=== PATIENT | female | born 1990 | race Caucasian/White ===

== ENCOUNTER → 2017-02-25 00:37 | Observation (INO) ==
--- NOTE | 2017-02-25 06:04 | Discharge Summary ---
Date of Encounter: 02/25/17 Time of Encounter: 00:20 - Discharge Diagnosis (1) Fall due to stumbling Priority: Primary Status: Acute Comments: Patient states she fell in [place] tonight. She states she caught herself during her fall and landed on her hands and knees without contact onto her stomach. She states positive movement, and denies cramping, contractions , leaking of fluid, vaginal bleeding, headahces, vision changes, and epigastric pain. She states she has some minor pain to her hands, elbows, and knees due to the fall. She is Rh negative and has received rhogam twice during her current . NST - reactive per RN KB - no cells present Discharge home with labor precautions and kick counts F/U in office with routine care as follows and prn Qualifiers: Encounter type: initial encounter Qualified Code(s): W01.0XXA - Fall on same level from slipping, tripping and stumbling without subsequent striking against object, initial encounter (2) 32 weeks gestation of Priority: Secondary Status: Acute - Discharge Medications Home Medications: Ferrous Sulfate 04/10/16 [History] Tablet 04/10/16 [History] Ranitidine HCl 04/10/16 [History] cephALEXin [Keflex] 500 mg PO TID #15 capsule 09/05/16 [Rx] Allergies/Adverse Reactions: Allergies No Known Allergies Allergy (Verified 02/24/17 22:52) Data Procedures and tests throughout hospitalization: Laboratory Tests 02/24/17 22:45 Volume Blood 0 Labs on day of discharge: Labs from last 24 hours 02/24/17 22:45 Volume Blood 0 Date of admission: 02/24/17 22:29 Primary care physician: PCP NO Discharging clinician: Felecia Oliva Anticipated date of discharge: 02/25/17 - Patient Status Disposition: Home, Self-Care Condition: Good Functional capacity at discharge: independent ambulation - Discharge Instructions Follow Up With: BETHANY,PCP [Primary Care Provider] - Codey Luke MD [Partnered Physician] - - Diet and Activity Activity: resume usual activities as tolerated Diet: regular diet Hospital Course INFORMATION SYSTEMS SECURITY MANAGER Time Attestation: Total time spent providing and/or coordinating discharge services: Time Spent: Less than 30 minutes - VTE Reasons for not Prescribing Prophylaxis: Treatment not Indicated - Low risk for VTE
== END | disposition home or self-care (01) ==
LOC: 1NENULAB
PROVIDERS: ADMIT Obstetrics & Gynecology; ATTEND Obstetrics & Gynecology

== ENCOUNTER 2017-04-14 09:20 | Inpatient (IN) ==
--- NOTE | 2017-04-14 09:27 | OB/GYN History & Physical ---
Date of Encounter: 04/14/17 Time of Encounter: 09:25 Assessment and Plan (1) 39 weeks gestation of Current visit: Yes Status: Acute Admit for induction of labor Started oxytocin induction IV Plan for Epidural Anticipated spontaneous vaginal delivery (2) Non-stress test reactive Current visit: Yes Status: Acute Baseline 135 bpm Moderate variability History of Present Illness Chief complaint: induction HPI: Patient is a 26 year-old female who presents to labor and delivery for induction of labor Patient reports good movement. Patient denies vaginal bleeding, sustained contractions, and loss of fluid. Uncomplicated course. She does have a family history of cleft palate and renal agenesis, but both were visualized as normal on latest ultrasound. She was last seen in the office by Dr. Luke earlier today. Her cervix was 4 and 80% effaced. Position -1. Her previous labors were both induced. Blood type: O- GBS negative Past Med Surg Social Fam HX - Past Medical History Medical history: no medical history Psychiatric history: no psych history - Past Surgical History Surgical History: no surgical history - Social History Smoking Status: Never smoker Smokeless Tobacco Status: No Alcohol use: none Drug use: none - Family History Father Living Status: Still Living Obstetrical History - Pregnancies : 3 Para: 2 Term: 2 : 0 Ab's: 0 Livin Medications and Allergies Ferrous Sulfate 325 mg PO BID 04/10/16 [History] Tablet 1 tab PO DAILY 04/10/16 [History] Ranitidine HCl 150 mg PO BID 04/10/16 [History] 3 Allergy/AdvReac Type Severity Reaction Status Date / Time No Known Allergies Allergy Verified 02/24/17 22:52 Review of System OB - Cardiovascular Cardiovascular: no chest pain - Respiratory Respiratory: no dyspnea on exertion - Gastrointestinal Gastrointestinal: no diarrhea, no nausea, no vomiting Exam - Constitutional Constitutional: well developed, well nourished, no acute distress - HEENT HEENT: Normocephaly, Mucus Membranes Moist - Neck Neck exam: trachea midline - Lungs Respiratory exam: CTAB - Cardiovascular Cardiovascular exam: RRR, +S1, +S2 - Abdomen Abdomen: Present: gravid, non tender - Extremities Extremities exam: normal capillary refill, normal inspection Deep Tendon Reflex Grade: 2+ Normal - Cervix Dilation: 4 Effacement: 80 Station: -1 - Uterus Uterus exam: Present: normal size, normal contour Results Result Diagrams: 04/14/17 09:40 All other labs normal. - Attending Attestation I examined this patient and my medical decision-making was reviewed with the Resident Physician. I agree with the documented findings, disposition and treatment plan as described except to the extent set forth below. Gestation 39 weeks and 2 days. Serologies all normal. POC per consult with Dr Luke and Dr Jauregui. Felecia Oliva CNM
[2017-04-14] MEDS ORDERED: Metoclopramide 10 MG/2 ML VIAL IVP PRN (09:40)
[2017-04-14] MEDS ORDERED: Ondansetron 4 MG/2 ML VIAL IVP PRN (09:40)
[2017-04-14] MEDS ORDERED: Naloxone 0.4 MG/ML INJ IVP PRN (09:40)
[2017-04-14] MEDS ORDERED: Famotidine 20 MG/2 ML VIAL IVP PRN (09:40)
[2017-04-14] MEDS ORDERED: Oxytocin 20 units/ LR 1000 mL 20 UNIT/1,000 ML BAG IVC SCH ×2 (09:45→20:31)
[2017-04-14 09:52] LABS: Basophils % 0.5 %; Eosinophils # 0.1 K/mcL (0.0-0.6); Eosinophils % 0.6 %; Hematocrit 33.6 % (35.3-44.9); Hemoglobin 10.2 g/dL (11.5-15.4); Immature Granulocytes % 0.5 % (0-4); Lymphocytes # 2.3 K/mcL (0.6-4.6); Lymphocytes % 27.5 %; Mean Corpuscular HGB Conc 30.4 g/dL (31.6-35.5); Mean Corpuscular Hemoglobin 23.9 pg (28.0-33.3); Mean Corpuscular Volume 78.7 fL (83.0-100.0); Monocytes # 0.6 K/mcL (0.0-1.3); Monocytes % 7.3 %; Neutrophils # 5.3 K/mcL (1.6-8.9); Platelet Count 270 K/mcL (140-400); Red Blood Count 4.27 M/mcL (3.82-4.97); Red Cell Distribution Width 14.4 % (11.5-14.5); Segmented Neutrophils % 63.6 %
[2017-04-14] MEDS: Ringers Solution, Lactated 1,000 ML IVC SCH ×3 (10:03→14:42)
[2017-04-14] MEDS ORDERED: Famotidine 20 MG TABLET PO SCH (10:45)
[2017-04-14] MEDS ORDERED: Epidural Premix (fent/bupiv) 110 ML EP ONE (12:59)
[2017-04-14] MEDS ORDERED: Epidural Premix (fent/bupiv) 110 ML EP SCH (13:00)
--- NOTE | 2017-04-14 13:00 | OB Labor Progress Note ---
Date of Encounter: 04/14/17 Time of Encounter: 12:51 Labor Progress Note - Subjective Subjective: Patient resting comfortably in bed stating that pain is tolerable with contractions. - Vital Signs Vital Signs: VSS - Cervix Cervix: 4/80/0 anterior firm - Heart Tones Heart Tones: 120-130 with moderate variability and 15 x 15 accels. no decels. - [place]: Contractions every 2-3 minutes, moderate by palpation. - Interventions Interventions: Discussed AROM - patient elects to have AROM after epidural. - Plan Plan: Continue routine labor management GBS negative Epidural per patient request AROM after patient is comfortable Anticipate vaginal delivery POC per consult with Dr Jauregui
[2017-04-14] MEDS ORDERED: EPHEDrine 50 MG/ML VIAL ONE (13:50)
--- NOTE | 2017-04-14 14:01 | Anesthesia Evaluation PreOp ---
Date of Encounter: 04/14/17 Time of Encounter: 13:20 - Past History Planned Operation: jaime Cardiac History: Denies any Significant Hx Pulmonary History: Denies Any Significant HX TUGGER OPERATOR History: Denies Any Significant HX Other Medical History: Denies Any Significant HX Anesthesia History: No Prior Anesthetic Complications : Yes Test: Positive Alcohol Use: none Drug use: none Medications and Allergies Ferrous Sulfate 325 mg PO BID 04/10/16 [History] Tablet 1 tab PO DAILY 04/10/16 [History] Ranitidine HCl 150 mg PO BID 04/10/16 [History] 3 Allergy/AdvReac Type Severity Reaction Status Date / Time No Known Allergies Allergy Verified 02/24/17 22:52 - Meds/Allergy Pre-op Review Medications Reviewed: Yes Allergies Reviewed: Yes Beta Blockers on Current Med List: No Anesthesia Results - Labs 04/14/17 09:40 Anesthesia Exam Height: 62 Weight: 76 Pain Scale: 7 - HEENT Pupil (Motor): Pupils equal Mallampati: II Teeth: Normal Oral Opening: Greater than 3 - TUGGER OPERATOR LOC: Oriented TUGGER OPERATOR Motor: Normal RUE, Normal LUE, Normal RLE, Normal LLE, Normal Face TUGGER OPERATOR Sensory: Normal: RUE, LUE, RLE, LLE, Face - Cardiac Rhythm: Regular Murmur: None JVD: No Carotid Bruit: No - Pulmonary Breath Sounds: bilateral Clear Respiratory Effort: Symmetrical Anesthesia Assess/Plan ASA Score: 2 Modified [place] Scale for Level of Consciousness: Cooperative, oriented, and tranquil Anesthetic Plan: Regional, MAC Autologous Blood: No Monitoring Plan: Standard Monitors
--- NOTE | 2017-04-14 14:03 | Anesthesia Procedures ---
Date of Encounter: 04/14/17 Time of Encounter: 13:20 Procedures: Anesthesia - Epidural/Spinal Patient ID/Chart reviewed: Yes Patient examined: Yes OB Eval: Gestational age: 39.2 OB Eval: : 3 OB Eval: Hx Para: 2 OB Eval: Contractions: Non-stressed pattern Consent Obtained: Yes Supplemental Oxygen: None/Room Air Site Prep: Aseptic Technique, Sterile prep and drape, Povidone-Iodine 1% Patient position: upright Local Anesthetic: Lidocaine 1% Amount of Local Anesthetic used: 3 Touhy Needle Gauge: 18 Touhy Needle Depth (cm): 4 Catheter Depth at Skin (cm): 10 Test Dose (1.5% Lido + Epi): Volume given (mls): 3 Test Dose Result: Negative Infusion Rate (mls/hr): [address]: Tegaderm, Tape Interspace Used: L4-L5 Loss of Resistance (DAPHNIE): Yes Blood: No CSF: No Paresthesia: No Vitals + FHT's: stable see nurasing record
--- NOTE | 2017-04-14 14:32 | OB Labor Progress Note ---
Date of Encounter: 04/14/17 Time of Encounter: 14:31 Labor Progress Note - Subjective Subjective: Patient resting comfortably in bed. Epidural in place and patient not feeling contractions - Vital Signs Vital Signs: VSS - Cervix Cervix: 5-6/80/0 - Heart Tones Heart Tones: 130-140 with moderate variability and 15 x 15 accels and no decels. - Ma[place] Ma[place]: Contractions every 2-4 minutes palpate moderate - Interventions Interventions: AROM for small amount of clear fluid; patient and fetus tolerated well - Plan Plan: Continue routine labor management. GBS negative Continue IV pitocin as ordered for adequate labor Pain well controlled with epidural Anticipate vaginal delivery POC per consult with Dr Jauregui
[2017-04-14] MEDS ORDERED: Lidocaine 1% 20 ML MDV ONE ×2 (17:46→18:02)
--- NOTE | 2017-04-14 18:43 | OB/GYN Procedure Note ---
Delivery - Delivery Date: 04/14/17 Provider: Arnaud Jauregui Intrapartum events: none Delivery induction: oxytocin Delivery augmentation: rupture of membranes Delivery monitor: external FHT, external uterine Anesthesia: local, epidural Estimated Blood Loss: 200 - (s) A Delivery Date: 04/14/17 Delivery Time: 17:49 Presentation: vertex Position: MAGDY Gender: Male Viability: Viable Weight Gram: 3.855 kg at 1 minute: 8 at 5 mins: 9 Specimens collected: cord blood Placenta: spontaneous Cord: nuchal cord, 3 umbilical vessels - Repair Laceration Description: Perineal - 3rd Degree - Complications Delivery complications: none - Disposition Mom disposition: stable in LDR [place] disposition: stable in LDR - Comments Comments: Pt s/p of liveborn male infant without incident. Baby was delivered through nuchal cord. Spontaneous delivery of normal placenta. Partial 3rd degree laceration repaired with 2-0 and 3-0 Vicryl. EBL 200 cc no complications.
[2017-04-14] MEDS ORDERED: Rho Immune Globulin 1,500 UNIT SYRINGE IM PRN (20:31)
[2017-04-14] MEDS ORDERED: Acetaminophen 325 MG TABLET PO PRN (20:31)
[2017-04-14] MEDS ORDERED: Measles/Mumps/Rubella Vacc 0.5 ML VIAL SQ PRN (20:31)
[2017-04-14] MEDS ORDERED: *HR* HYDROcodone/Acet 5/325 mg TABLET PO PRN (20:31)
[2017-04-14] MEDS: Ibuprofen 600 MG TABLET PO PRN (21:25)
[2017-04-15] MEDS: Ibuprofen 600 MG TABLET PO PRN ×3 (04:04→16:46)
[2017-04-15] MEDS ORDERED: Famotidine 20 MG TABLET PO PRN ×3 (04:28→17:15)
[2017-04-15] MEDS ORDERED: Benzocaine/Menthol 56 GM AEROSOL SPRAY TP PRN (08:30)
[2017-04-15] MEDS ORDERED: Lanolin 28 GM TUBE TP PRN (08:31)
--- NOTE | 2017-04-15 08:33 | Discharge Summary ---
Date of Encounter: 04/15/17 Time of Encounter: 08:33 - Discharge Diagnosis (1) Mother currently breast-feeding Priority: Secondary Status: Acute (2) Vaginal delivery Priority: Primary Status: Acute Comments: Pt meeting all milestones. (3) Rh negative state in antepartum period Priority: Secondary Status: Acute Comments: Rhogam needed before discharge. - Discharge Medications Prescriptions: Ibuprofen [Motrin] 600 mg PO Q6HR PRN #60 tab PRN Reason: Cramping Breast Pump [BREAST PUMP] 1 each .ROUTE AD #1 each Docusate [Colace] 100 mg PO BID #60 Home Medications: Tablet 1 tab PO DAILY 04/10/16 [History] Benzocaine/Menthol [place] [Dermoplast Edelstein] 1 appl TP QID PRN aerosol 04/15/17 [Rx] Breast Pump [BREAST PUMP] 1 each .ROUTE AD #1 each 04/15/17 [Rx] Docusate [Colace] 100 mg PO BID #60 04/15/17 [Rx] Ibuprofen [Motrin] 600 mg PO Q6HR PRN #60 tab 04/15/17 [Rx] Lanolin 1 appl TP Q4HR PRN 04/15/17 [Rx] Lanolin [Lansinoh] 1 appl TP Q4HR PRN 04/15/17 [Rx] Allergies/Adverse Reactions: 3 Allergy/AdvReac Type Severity Reaction Status Date / Time No Known Allergies Allergy Verified 02/24/17 22:52 Data Procedures and tests throughout hospitalization: Laboratory Tests 04/14/17 09:40 WBC 8.3 RBC 4.27 Hgb 10.2 L Hct 33.6 L MCV 78.7 L MCH 23.9 L MCHC 30.4 L RDW 14.4 Plt Count 270 MPV 10.0 Immature Gran % 0.5 Seg Neutrophils % 63.6 Lymphocytes % 27.5 Monocytes % 7.3 Eosinophils % 0.6 Basophils % 0.5 Neutrophils # 5.3 Lymphocytes # 2.3 Monocytes # 0.6 Eosinophils # 0.1 Basophils # 0.0 Labs on day of discharge: Labs from last 24 hours 04/14/17 09:40 WBC 8.3 RBC 4.27 Hgb 10.2 L Hct 33.6 L MCV 78.7 L MCH 23.9 L MCHC 30.4 L RDW 14.4 Plt Count 270 MPV 10.0 Immature Gran % 0.5 Seg Neutrophils % 63.6 Lymphocytes % 27.5 Monocytes % 7.3 Eosinophils % 0.6 Basophils % 0.5 Neutrophils # 5.3 Lymphocytes # 2.3 Monocytes # 0.6 Eosinophils # 0.1 Basophils # 0.0 Date of admission: 04/14/17 09:20 Primary care physician: PCP YAMILETH Consults: 04/14/17 20:31 Consult to Foundry Worker General [CONS] Routine Comment: Vaginal delivery, consult needed Discharging clinician: Gerda Mendenhall Anticipated date of discharge: 04/15/17 - Patient Status Disposition: Home, Self-Care Condition: Good Functional capacity at discharge: independent ambulation Overall status at discharge: patient is progressing back to baseline - Discharge Instructions Follow Up With: NONE,PCP [Primary Care Provider] - Codey Luke MD [Partnered Physician] - - Diet and Activity Activity: increase activity as tolerated Diet: regular diet Hospital Course Reason for admission: induction of labor Delivery: Episiotomy: none Laceration: 3rd degree Other procedures: none complications: none Discharge diagnosis: IUP at term delivered [place] baby: male Time Attestation: Total time spent providing and/or coordinating discharge services: Time Spent: Less than 30 minutes Exam - Constitutional Vitals: Temp Pulse Resp BP Pulse Ox 97.9 F 76 16 106/69 99 04/15/17 08:21 04/15/17 08:21 04/15/17 08:21 04/15/17 08:21 04/15/17 08:21 General appearance IM: A&O X 3 - Respiratory Respiratory exam: Present: CTAB - Cardiovascular Cardiovascular exam IM: Present: RRR - GI/Abdominal GI/Abdominal exam IM: soft - Rectal Rectal exam: deferred - External exam: swelling Uterine Tone: Firm Uterus Position: 1 Finger Above Umbilicus - Extremities Exam Extremities exam IM: Present: normal inspection - Neurological Exam Neurological exam: normal gait, oriented X3 - Psychiatric Additional comments: reports good mood
[2017-04-15] MEDS ORDERED: Prenatal Vit/FA 1 EACH TABLET PO SCH (09:00)
[2017-04-15] MEDS: Lanolin 7 G OINT...G. TP PRN ×2 (09:31→16:47)
[2017-04-15 17:38] VITALS: BP 114/71
== END 2017-04-15 18:51 | disposition home or self-care (01) | DRG 542 ==
LOC: 1NENULAB 09:20 → 1NENUOBS 19:41
PROVIDERS: ADMIT Obstetrics & Gynecology; ATTEND Obstetrics & Gynecology

== ENCOUNTER 2019-05-06 10:59 | Inpatient (IN) ==
[2019-05-06] MEDS ORDERED: Ringers Solution, Lactated 1,000 ML ONE ×2 (11:19→12:21)
[2019-05-06] MEDS ORDERED: Lidocaine 1% 20 ML MDV ID PRN (11:38)
[2019-05-06] MEDS ORDERED: Famotidine 20 MG/2 ML VIAL IVP PRN (11:38)
[2019-05-06] MEDS ORDERED: Ondansetron 4 MG/2 ML VIAL IVP PRN (11:38)
[2019-05-06] MEDS ORDERED: Naloxone 0.4 MG/ML INJ IVP PRN (11:38)
[2019-05-06] MEDS ORDERED: Metoclopramide 10 MG/2 ML VIAL IVP PRN (11:38)
[2019-05-06] MEDS ORDERED: *HR* Nalbuphine 10 MG/ML AMPUL IVP PRN (11:38)
[2019-05-06] MEDS ORDERED: Ringers Solution, Lactated 1,000 ML IVC ONE (11:40)
[2019-05-06 11:53] LABS: Basophils % 0.2 %; Eosinophils % 0.1 %; Hematocrit 33.2 % (35.3-44.9); Hemoglobin 10.6 g/dL (11.5-15.4); Immature Granulocytes % 0.5 % (0-4); Lymphocytes # 0.9 K/mcL (0.6-4.6); Lymphocytes % 7.6 %; Mean Corpuscular HGB Conc 31.9 g/dL (31.6-35.5); Mean Corpuscular Hemoglobin 25.8 pg (28.0-33.3); Mean Corpuscular Volume 80.8 fL (83.0-100.0); Mean Platelet Volume 10.1 fL (9.4-12.4); Monocytes # 0.8 K/mcL (0.0-1.3); Monocytes % 6.4 %; Neutrophils # 10.3 K/mcL (1.6-8.9); Platelet Count 227 K/mcL (140-400); Red Blood Count 4.11 M/mcL (3.82-4.97); Red Cell Distribution Width 13.9 % (11.5-14.5); Segmented Neutrophils % 85.2 %; White Blood Count 12.1 K/mcL (4.3-11.1)
[2019-05-06 12:00] LABS: Amphetamine Screen,Urine Negative ng/mL (Cutoff=1000); Barbiturate Screen,Urine Negative ng/mL (Cutoff=200); Benzodiazepines Screen,Urine Negative ng/mL (Cutoff=200); Cannabinoid Screen,Urine Negative ng/mL (Cutoff = 50); Cocaine Screen,Urine Negative ng/mL (Cutoff= 300); Opiate Screen,Urine Negative ng/mL (Cutoff=300); Phencyclidine Screen,Urine Negative ng/mL (Cutoff=25)
[2019-05-06] MEDS ORDERED: Bupivacaine-MPF 0.25% 10 ML VIAL EP ONE (12:01)
[2019-05-06] MEDS ORDERED: *HR* FentaNYL (PF) 100 MCG/2 ML VIAL EP ONE (12:01)
[2019-05-06] MEDS ORDERED: Epidural Premix (fent/bupiv) 110 ML EP ONE (12:12)
[2019-05-06] MEDS ORDERED: Epidural Premix (fent/bupiv) 110 ML EP SCH (12:15)
[2019-05-06] MEDS: Ringers Solution, Lactated 1,000 ML IVC SCH ×2 (12:30→14:17)
--- NOTE | 2019-05-06 12:45 | Anesthesia Evaluation PreOp ---
Date of Encounter: 05/06/19 Time of Encounter: 12:05 - Past History Planned Operation: KASSANDRA Cardiac History: Denies any Significant Hx Pulmonary History: Denies Any Significant HX DIRECTOR OF DISTRICT OFFICE History: Denies Any Significant HX Other Medical History: Other (mild scoliosis w/ localized lower back pain w/out radiculopathy) Anesthesia History: No Prior Anesthetic Complications, Past Anesthesia (KASSANDRA x3--2 satisfactory, 1 unsatisfactory) : Yes Alcohol Use: none Drug use: none Medications and Allergies Ferrous Sulfate 2 tab PO DAILY 05/06/19 [History] Lidocaine Patch 1 patch DAILY 05/06/19 [History] One-A-Day 1 Dha Sfgl 1 tab PO DAILY 05/06/19 [History] Allergy/AdvReac Type Severity Reaction Status Date / Time No Known Allergies Allergy Verified 09/01/18 15:38 - Meds/Allergy Pre-op Review Medications Reviewed: Yes Allergies Reviewed: Yes Beta Blockers on Current Med List: No Anesthesia Results - Labs 05/06/19 11:26 Anesthesia Exam O2 Sat Height 1.57 m Height 1.57 m Weight 73.981 kg Weight 73.9 kg NPO (# of Hours): solids > 8hrs Pain Scale: 8 Pain Scale Used: Bach-Louise (Faces) - HEENT Pupil (Motor): Pupils equal Mallampati: II Teeth: Normal Oral Opening: Greater than 3 - DIRECTOR OF DISTRICT OFFICE LOC: Oriented DIRECTOR OF DISTRICT OFFICE Motor: Normal RUE, Normal LUE, Normal RLE, Normal LLE, Normal Face DIRECTOR OF DISTRICT OFFICE Sensory: Normal: RUE, LUE, RLE, LLE, Face - Cardiac Rhythm: Regular Murmur: None - Pulmonary Breath Sounds: bilateral Clear Respiratory Effort: Symmetrical Anesthesia Assess/Plan ASA Score: 2 Level of consciousness: Cooperative, Oriented, Restless Anesthetic Plan: Epidural Autologous Blood: No Monitoring Plan: Standard Monitors Recovery Plan: Other
--- NOTE | 2019-05-06 12:48 | Anesthesia Procedures ---
Date of Encounter: 05/06/19 Time of Encounter: 12:46 Procedures: Anesthesia - Epidural/Spinal Patient ID/Chart reviewed: Yes Patient examined: Yes OB Eval: Gestational age: 39 weeks 1 day OB Eval: : 4 OB Eval: Hx Para: 3 OB Eval: Dilated at (cm): 5 OB Eval: Contractions: Non-stressed pattern Consent Obtained: Yes Supplemental Oxygen: None/Room Air Site Prep: Aseptic Technique, Sterile prep and drape, 0.5% Chlorhexidine/Alcohol Patient position: upright Local Anesthetic: Lidocaine 1% Amount of Local Anesthetic used: 3 Touhy Needle Gauge: 18 Touhy Needle Depth (cm): 4 Catheter Depth at Skin (cm): 9 Test Dose (1.5% Lido + Epi): Volume given (mls): 5 Test Dose Result: Negative Loading Dose: 0.25% Marcaine (mls): 5 Loading Dose: Fentanyl (mcg): 100 Loading Dose Administered: Thru Catheter Infusion Med: 0.125% Bupivacaine w/ 2 mcg/ml Fentanyl Infusion Rate (mls/hr): 13 (w/ demand bolus of 5mL q30min PRN) Catheter Secured in Place: Tegaderm, Tape Interspace Used: L4-L5 Loss of Resistance (DAPHNIE): Yes Blood: No CSF: No Paresthesia: No Procedure: successful on 1st attempt; patient tolerated procedure well; VSS Vitals + FHT's: see [facility] FIGUEROA's electronic records for VS entry
--- NOTE | 2019-05-06 13:05 | Event Note ---
Date of Encounter: 05/06/19 Time of Encounter: 13:05 Tory is a 28-year-old female who presented today in labor on presentation she is now 4 cm 80% effaced and -1 station. She is alberto on her own every 2 minutes. heart rate in the 160s to 170 range. Because of this artificial rupture membranes was performed. Clear fluid returned.
[2019-05-06 14:44] LABS: Bilirubin,Urine Negative (Negative); Blood,Urine Negative (Negative); Clarity,Urine Clear (Clear); Color,Urine Yellow (Yellow); Glucose,Urine (UA) Normal (Normal); Ketones,Urine 40 mg/dL (Negative); Leukocyte Esterase,Urine Negative (Negative); Nitrite,Urine Negative (Negative); PH,Urine 7.5 pH Units (5.0-8.0); Protein,Urine Negative (Neg-Trace); Specific Gravity,Urine 1.007 (1.010-1.025); Urobilinogen,Urine Normal (Normal)
[2019-05-06] MEDS ORDERED: Acetaminophen 325 MG TABLET PO ONE (14:51)
[2019-05-06] MEDS ORDERED: Oxytocin 20 units/ LR 1000 mL 20 UNIT/1,000 ML BAG IVC SCH ×2 (15:00→18:53)
--- NOTE | 2019-05-06 15:34 | OB/GYN History & Physical ---
Date of Encounter: 05/06/19 Time of Encounter: 12:30 Assessment and Plan (1) 39 weeks gestation of Current visit: No Status: Acute History of Present Illness Chief complaint: labor HPI: Ms. Coello is a 28 year old female presented to labor and delivery in labor. On presentation her cervix is 4 cm 80% effaced and -1 station. Artificial rupture membranes was performed with clear fluid being noted. She has no drug allergies. Current medications vitamins, iron and lidocaine patch. She has no chronic medical conditions. She is currently having no chronic medical conditions. Surgical history is negative. She has no history of STDs or pelvic infections. Socially she denies tobacco, alcohol, illicit drug use. Family history is significant for thyroid disease, heart disease, obesity, sleep apnea and diabetes. Obstetric history significant for 3 term vaginal deliveries uncomplicated. Past Med Surg Social Fam HX - Past Medical History Medical history: no medical history Additional medical history: breast feeding Psychiatric history: no psych history - Past Surgical History Surgical History: no surgical history - Social History Smoking Status: Never smoker Smokeless Tobacco Status: No Alcohol use: none Drug use: none - Family History Father Name: Denies any family medical history Family Member Ethnicity: Non- Living Status: Still Living Hx Family Cardiac Disorders: No Hx Family Respiratory Disorders: No Hx Family Cancer: No Hx Family GI Disorders: No Hx Family Endocrine Disorder: No Hx Family Neuromuscular Disorders: No Hx Family Neurologic Disorders: No Hx Family HEENT Disorders: No Hx Family Autoimmune Disorders: No Obstetrical History - Pregnancies : 4 Para: 3 Term: 3 Livin Medications and Allergies Ferrous Sulfate 2 tab PO DAILY 05/06/19 [History] Lidocaine Patch 1 patch DAILY 05/06/19 [History] One-A-Day 1 Dha Sfgl 1 tab PO DAILY 05/06/19 [History] Allergy/AdvReac Type Severity Reaction Status Date / Time No Known Allergies Allergy Verified 09/01/18 15:38 Review of System OB All systems PM: reviewed and no additional remarkable complaints except as stated Exam - Constitutional Constitutional: well developed, well nourished, no acute distress, average body habitus - HEENT HEENT: EOMI, PERRL, Normocephaly - Neck Neck exam: full ROM, normal inspection - Lungs Respiratory exam: CTAB - Cardiovascular Cardiovascular exam: RRR - Abdomen Abdomen: Present: bowel sounds normal, gravid, non tender - Extremities Extremities exam: full ROM, normal inspection - Vagina Vagina: Present: normal moisture - Cervix Dilation: 4 Effacement: 80 Station: -2 - Uterus Uterus exam: Present: normal size Results Result Diagrams: 05/06/19 11:26 Abnormal lab results WBC 12.1 K/mcL (4.3-11.1) H 05/06/19 11:26 Hgb 10.6 g/dL (11.5-15.4) L 05/06/19 11:26 Hct 33.2 % (35.3-44.9) L 05/06/19 11:26 MCV 80.8 fL (83.0-100.0) L 05/06/19 11:26 MCH 25.8 pg (28.0-33.3) L 05/06/19 11:26 Neutrophils # 10.3 K/mcL (1.6-8.9) H 05/06/19 11:26 Ur Specific [place] 1.007 (1.010-1.025) L 05/06/19 14:20 Urine Ketones 40 mg/dL (Negative) H 05/06/19 14:20 All other labs normal. - VTE Reasons for not Prescribing Prophylaxis: Treatment not Indicated - Low risk for VTE
--- NOTE | 2019-05-06 16:05 | OB/GYN Procedure Note ---
Delivery - Delivery Date: 05/06/19 Provider: Rashid Tavares Intrapartum events: none Delivery induction: AROM Delivery augmentation: pitocin Delivery monitor: external FHT, external uterine Anesthesia: epidural Quantitated Blood Loss: 300 - (s) Infant A Delivery Date: 05/06/19 Presentation: vertex Position: OA Route of delivery: Gender: Female Viability: Viable at 1 minute: 8 at 5 mins: 9 Shoulder Dystocia: not encountered Placenta: spontaneous Cord: 3 umbilical vessels - Repair Episiotomy: none Laceration Description: None - Complications Delivery complications: none Delivery comments: This patient progressed to complete and pushing. She had a rapid spontaneous va ginal delivery of a female over an intact perineum. Infant's that was the perineum with 1 push. The rest the infant was then delivered with another push. Infant cried immediately upon delivery. After 1 minute cord was clamped cut. The was passed to nursing in attendance. Cord blood was obtained. Placenta was then delivered spontaneously and intact. There are no cervical, vaginal, periurethral, or perineal lacerations noted. Patient delivered a female . Weight is pending his mother skin the skin. Apgars are 8 at 1 minute and 9 at 5 minutes. Estimated blood loss is 300 mL - Disposition Mom disposition: stable in LDR disposition: stable in LDR
--- NOTE | 2019-05-06 17:26 | Anesthesia Progress Note ---
Date of Encounter: 05/06/19 Time of Encounter: 15:35 Anesthesia Note - Note Note: called to patient bedside to evaluate breakthrough labor pain; patient describes pain as bilateral lower pelvic. confirmed catheter to be in correct position so 7mL of 0.125% bupiviaine administered through catheter. While waiting to see effectiveness of intervention, Dr. Tavares assessed patient and determined it's time for delivery. VSS 05/06/19 17:24
[2019-05-06] MEDS ORDERED: Measles/Mumps/Rubella Vacc 0.5 ML VIAL SQ PRN (18:53)
[2019-05-06] MEDS ORDERED: Rho Immune Globulin 1,500 UNIT SYRINGE IM PRN (18:53)
[2019-05-06] MEDS ORDERED: Acetaminophen 325 MG TABLET PO PRN (18:53)
[2019-05-06] MEDS: Ibuprofen 600 MG TABLET PO PRN (21:47)
[2019-05-06] MEDS ORDERED: Gentamicin 360 MG in 0.9 % Sodium Chloride 100 ML IVPB ONE (23:14)
[2019-05-07] MEDS: Clindamycin 900 MG/50 ML 900 MG/50 ML IV.SOLN IVPB SCH ×2 (00:53→08:38)
[2019-05-07 05:57] LABS: Basophils % 0.2 %; Hematocrit 28.8 % (35.3-44.9); Immature Granulocytes % 0.7 % (0-4); Lymphocytes # 0.7 K/mcL (0.6-4.6); Mean Corpuscular HGB Conc 30.6 g/dL (31.6-35.5); Mean Corpuscular Hemoglobin 25.4 pg (28.0-33.3); Monocytes # 0.4 K/mcL (0.0-1.3); Monocytes % 4.3 %; Platelet Count 167 K/mcL (140-400); Red Blood Count 3.47 M/mcL (3.82-4.97); Segmented Neutrophils % 87.8 %; White Blood Count 10.2 K/mcL (4.3-11.1)
[2019-05-07 06:04] LABS: Hemoglobin 8.8 g/dL (11.5-15.4)
[2019-05-07] MEDS: Ibuprofen 600 MG TABLET PO PRN ×3 (08:38→23:14)
[2019-05-07] MEDS: Prenatal Vit/FA 1 EACH TABLET PO SCH (08:38)
--- NOTE | 2019-05-07 09:01 | OB/GYN Progress Note ---
Date of Encounter: 05/07/19 Time of Encounter: 08:59 - Assessment and Plan (1) Breast feeding status of mother Current Visit: Yes Status: Acute support prn (2) Vaginal delivery Current Visit: No Status: Acute Continue routine care repeat cbc in am (3) anemia Current Visit: Yes Status: Acute increase ferrous sulfate to BID Subjective - Subjective Principal diagnosis: day 1 Interval history: Patient is postop day 1. She is tolerating regular diet. Denies any abdominal pain. Reports mild headache. She denies feeling lightheaded, weak or dizzy. Patient reports: appetite normal, voiding normally, pain well controlled, ambulating normally, no dizzy ambulation, no nauseated : doing well, nursing well Objective - Latest Vital Signs Latest vital signs: Vital Signs Temp Pulse Pulse Resp BP Pulse Ox 05/07/19 07:41 99.8 F H 112 16 101/65 95 05/07/19 04:20 98.4 F 100 15 94/59 99 05/07/19 01:01 98.4 F 104 15 91/59 100 05/06/19 23:01 101.0 F H 104 15 100 05/06/19 21:20 101.5 F H 110 05/06/19 20:30 100.5 F H 120 14 130/84 100 05/06/19 19:30 99.1 F 117 16 121/77 100 05/06/19 18:40 107 14 05/06/19 18:30 98.1 F 107 14 112/73 99 Intake and Output 05/06/19 05/07/19 05/07/19 23:59 07:59 15:59 Intake Total 159 / 159 Output Total 1450 / 1450 800 / 1600 800 / 1600 Balance -1450 / -450 -641 / -1441 -800 / -1441 Intake: IV Fluids 159 / 159 Cleocin Premix 900 MG/50 ML 900 50 / 50 mg In 50 ml @ 50 mls/hr IVPB Q8HR [facility] Rx#:[id number] Garamycin 360 MG In 0.9 % 109 / 109 Sodium Chloride 100 ML @ 100. 025 mls/hr IVPB ONCE ONE Rx#: [id number] Output: Urine 1450 / 1450 800 / 1600 800 / 1600 Other: Stool Characteristics Normal for Patient Weight 71.8 kg - Exam Lungs: bilateral: normal Chest: Normal S1, Normal S2 Extremities: Present: normal Abdomen: Present: normal appearance, soft Uterus: Present: normal Uterus Position: At Umbilicus, Midline - Labs Labs: Laboratory Results - last 24 hr 05/06/19 05/06/19 05/06/19 11:26 11:26 14:20 WBC 12.1 H RBC 4.11 Hgb 10.6 L Hct 33.2 L MCV 80.8 L MCH 25.8 L MCHC 31.9 RDW 13.9 Plt Count 227 MPV 10.1 Immature Gran % 0.5 Seg Neutrophils % 85.2 Lymphocytes % 7.6 Monocytes % 6.4 Eosinophils % 0.1 Basophils % 0.2 Neutrophils # 10.3 H Lymphocytes # 0.9 Monocytes # 0.8 Eosinophils # 0.0 Basophils # 0.0 Urine Color Yellow Urine Clarity Clear Urine pH 7.5 Ur Specific [place] 1.007 L Urine Protein Negative Urine Glucose (UA) Normal Urine Ketones 40 H Urine Blood Negative Urine Nitrite Negative Urine Bilirubin Negative Urine Urobilinogen Normal Ur Leukocyte Esterase Negative Ur Culture Indicated? NO Urine Opiates Screen Negative Ur Buprenorphine Scrn Negative Ur Barbiturates Screen Negative Ur Phencyclidine Scrn Negative Ur Amphetamines Screen Negative U Benzodiazepines Scrn Negative Urine Cocaine Screen Negative U Marijuana (THC) Screen Negative Ur Drug Screen Interp See Below 05/07/19 05:33 WBC 10.2 RBC 3.47 L Hgb 8.8 L D Hct 28.8 L MCV 83.0 MCH 25.4 L MCHC 30.6 L RDW 14.0 Plt Count 167 MPV 10.0 Immature Gran % 0.7 Seg Neutrophils % 87.8 Lymphocytes % 7.0 Monocytes % 4.3 Eosinophils % 0.0 Basophils % 0.2 Neutrophils # 9.0 H Lymphocytes # 0.7 Monocytes # 0.4 Eosinophils # 0.0 Basophils # 0.0 Urine Color Urine Clarity Urine pH Ur Specific [place] Urine Protein Urine Glucose (UA) Urine Ketones Urine Blood Urine Nitrite Urine Bilirubin Urine Urobilinogen Ur Leukocyte Esterase Ur Culture Indicated? Urine Opiates Screen Ur Buprenorphine Scrn Ur Barbiturates Screen Ur Phencyclidine Scrn Ur Amphetamines Screen U Benzodiazepines Scrn Urine Cocaine Screen U Marijuana (THC) Screen Ur Drug Screen Interp
[2019-05-07] MEDS ORDERED: FLU Vac QV 19-20 (6Month+)/PF 0.5 ML SYRINGE IM ONE (13:30)
[2019-05-07] MEDS ORDERED: Lanolin 7 G OINT...G. TP PRN (20:17)
[2019-05-08 06:50] LABS: Basophils % 0.5 %; Eosinophils # 0.2 K/mcL (0.0-0.6); Eosinophils % 2.8 %; Hematocrit 32.1 % (35.3-44.9); Hemoglobin 9.7 g/dL (11.5-15.4); Immature Granulocytes % 1.1 % (0-4); Lymphocytes # 1.7 K/mcL (0.6-4.6); Lymphocytes % 21.5 %; Mean Corpuscular HGB Conc 30.2 g/dL (31.6-35.5); Mean Corpuscular Hemoglobin 25.6 pg (28.0-33.3); Mean Corpuscular Volume 84.7 fL (83.0-100.0); Mean Platelet Volume 10.3 fL (9.4-12.4); Monocytes # 0.5 K/mcL (0.0-1.3); Monocytes % 6.8 %; Neutrophils # 5.4 K/mcL (1.6-8.9); Platelet Count 203 K/mcL (140-400); Red Blood Count 3.79 M/mcL (3.82-4.97); Red Cell Distribution Width 14.1 % (11.5-14.5); Segmented Neutrophils % 67.3 %
[2019-05-08 08:13] VITALS: BP 107/68
--- NOTE | 2019-05-08 08:53 | Discharge Summary ---
Date of Encounter: 05/08/19 Time of Encounter: 08:51 - Discharge Diagnosis (1) Vaginal delivery Priority: Primary Status: Acute Comments: S/P Vaginal Delivery Day 2. VSS Pain is well controlled Lochia is light and without clots Tolerating regular diet, passing flatus Voiding without difficulty Breast feeding Discharge home today POC per consult with Dr Tavares (2) Breast feeding status of mother Priority: Secondary Status: Acute (3) anemia Priority: Secondary Status: Acute - Discharge Medications Prescriptions: New Breast Pump [BREAST PUMP] 1 each .ROUTE AD #1 each Docusate [Colace] 100 mg PO BID #30 capsule Ferrous Sulfate 325 mg PO BIDWM #180 tablet Lanolin [Lansinoh] 1 appl TP TID PRN oint...g. PRN Reason: Sore Nipples Ibuprofen [Motrin] 600 mg PO Q6HR PRN #30 tablet PRN Reason: Fever Acetaminophen [Tylenol] 650 mg PO Q6HR PRN tablet PRN Reason: Mild Pain Continued One-A-Day 1 Dha Sfgl 1 tab PO DAILY Lidocaine Patch 1 patch DAILY Discontinued Ferrous Sulfate 2 tab PO DAILY Home Medications: Lidocaine Patch 1 patch DAILY 05/06/19 [History] One-A-Day 1 Dha Sfgl 1 tab PO DAILY 05/06/19 [History] Acetaminophen [Tylenol] 650 mg PO Q6HR PRN tablet 05/08/19 [Rx] Breast Pump [BREAST PUMP] 1 each .ROUTE AD #1 each 05/08/19 [Rx] Docusate [Colace] 100 mg PO BID #30 capsule 05/08/19 [Rx] Ferrous Sulfate 325 mg PO BIDWM #180 tablet 05/08/19 [Rx] Ibuprofen [Motrin] 600 mg PO Q6HR PRN #30 tablet 05/08/19 [Rx] Lanolin [Lansinoh] 1 appl TP TID PRN oint...g. 05/08/19 [Rx] Allergies/Adverse Reactions: Allergy/AdvReac Type Severity Reaction Status Date / Time No Known Allergies Allergy Verified 09/01/18 15:38 Data Procedures and tests throughout hospitalization: Laboratory Tests 05/06/19 05/06/19 05/06/19 11:26 11:26 14:20 WBC 12.1 H RBC 4.11 Hgb 10.6 L Hct 33.2 L MCV 80.8 L MCH 25.8 L MCHC 31.9 RDW 13.9 Plt Count 227 MPV 10.1 Immature Gran % 0.5 Seg Neutrophils % 85.2 Lymphocytes % 7.6 Monocytes % 6.4 Eosinophils % 0.1 Basophils % 0.2 Neutrophils # 10.3 H Lymphocytes # 0.9 Monocytes # 0.8 Eosinophils # 0.0 Basophils # 0.0 Urine Color Yellow Urine Clarity Clear Urine pH 7.5 Ur Specific [place] 1.007 L Urine Protein Negative Urine Glucose (UA) Normal Urine Ketones 40 H Urine Blood Negative Urine Nitrite Negative Urine Bilirubin Negative Urine Urobilinogen Normal Ur Leukocyte Esterase Negative Ur Culture Indicated? NO Urine Opiates Screen Negative Ur Buprenorphine Scrn Negative Ur Barbiturates Screen Negative Ur Phencyclidine Scrn Negative Ur Amphetamines Screen Negative U Benzodiazepines Scrn Negative Urine Cocaine Screen Negative U Marijuana (THC) Screen Negative Ur Drug Screen Interp See Below Screen Baby's Blood Type Mother's Blood Type Rhogam Indicated Rhogam Req for Mother 05/06/19 05/07/19 05/08/19 16:14 05:33 06:33 WBC 10.2 8.0 RBC 3.47 L 3.79 L Hgb 8.8 L D 9.7 L Hct 28.8 L 32.1 L MCV 83.0 84.7 MCH 25.4 L 25.6 L MCHC 30.6 L 30.2 L RDW 14.0 14.1 Plt Count 167 203 MPV 10.0 10.3 Immature Gran % 0.7 1.1 Seg Neutrophils % 87.8 67.3 Lymphocytes % 7.0 21.5 Monocytes % 4.3 6.8 Eosinophils % 0.0 2.8 Basophils % 0.2 0.5 Neutrophils # 9.0 H 5.4 Lymphocytes # 0.7 1.7 Monocytes # 0.4 0.5 Eosinophils # 0.0 0.2 Basophils # 0.0 0.0 Urine Color Urine Clarity Urine pH Ur Specific [place] Urine Protein Urine Glucose (UA) Urine Ketones Urine Blood Urine Nitrite Urine Bilirubin Urine Urobilinogen Ur Leukocyte Esterase Ur Culture Indicated? Urine Opiates Screen Ur Buprenorphine Scrn Ur Barbiturates Screen Ur Phencyclidine Scrn Ur Amphetamines Screen U Benzodiazepines Scrn Urine Cocaine Screen U Marijuana (THC) Screen Ur Drug Screen Interp Screen NEGATIVE Baby's Blood Type O RH POSITIVE Mother's Blood Type O RH NEGATIVE Rhogam Indicated YES Rhogam Req for Mother 1 Labs on day of discharge: Labs from last 24 hours 05/08/19 05/06/19 06:33 16:14 WBC 8.0 RBC 3.79 L Hgb 9.7 L Hct 32.1 L MCV 84.7 MCH 25.6 L MCHC 30.2 L RDW 14.1 Plt Count 203 MPV 10.3 Immature Gran % 1.1 Seg Neutrophils % 67.3 Lymphocytes % 21.5 Monocytes % 6.8 Eosinophils % 2.8 Basophils % 0.5 Neutrophils # 5.4 Lymphocytes # 1.7 Monocytes # 0.5 Eosinophils # 0.2 Basophils # 0.0 Screen NEGATIVE Baby's Blood Type O RH POSITIVE Mother's Blood Type O RH NEGATIVE Rhogam Indicated YES Rhogam Req for Mother 1 Date of admission: 05/06/19 10:59 Primary care physician: PCP YAMILETH Consults: 05/06/19 18:53 Consult to Scarfer [CONS] Routine Comment: Vaginal delivery, consult needed Discharging clinician: Felecia Oliva Anticipated date of discharge: 05/08/19 - Patient Status Disposition: Home, Self-Care Condition: Good Functional capacity at discharge: independent ambulation Overall status at discharge: patient is progressing back to baseline - Discharge Instructions Follow Up With: NONE,PCP [Primary Care Provider] - Codey Luke MD [Partnered Physician] - - Diet and Activity Activity: increase activity as tolerated Diet: regular diet Hospital Course Reason for admission: IUP at term Delivery: Episiotomy: none Laceration: none Other procedures: none complications: none Discharge diagnosis: IUP at term delivered [place] baby: female Time Attestation: Total time spent providing and/or coordinating discharge services: Time Spent: Less than 30 minutes Exam - Constitutional Vitals: Temp Pulse Resp BP Pulse Ox 97.9 F 85 18 107/68 99 05/08/19 08:12 05/08/19 08:12 05/07/19 20:20 05/08/19 08:12 05/08/19 08:12 General appearance IM: cooperative, A&O X 3, pleasant, no acute distress - Respiratory Respiratory exam: Present: CTAB. Absent: respiratory distress - Cardiovascular Cardiovascular exam IM: Present: RRR, +S1, +S2. Absent: irregular rhythm - GI/Abdominal GI/Abdominal exam IM: normal bowel sounds - Rectal Rectal exam: deferred - Uterine Tone: Firm Uterus Position: 2 Fingers Below Umbilicus, Midline - Extremities Exam Extremities exam IM: Absent: calf tenderness - Neurological Exam Neurological exam: alert, oriented X3
[2019-05-08] MEDS: Prenatal Vit/FA 1 EACH TABLET PO SCH (09:13)
[2019-05-08] MEDS: Ibuprofen 600 MG TABLET PO PRN (09:13)
== END 2019-05-08 13:41 | disposition home or self-care (01) | DRG 560 ==
LOC: 1NENULAB → OBSVTOIN 10:59 → 1NENUOBS 18:26
PROVIDERS: ADMIT Advanced Practice Midwife; ATTEND Advanced Practice Midwife

== ENCOUNTER 2021-07-12 06:37 | Inpatient (IN) ==
[2021-07-12] MEDS ORDERED: Ringers Solution, Lactated 1,000 ML ONE (06:52)
[2021-07-12] MEDS ORDERED: Famotidine 20 MG/2 ML VIAL IVP PRN (07:07)
[2021-07-12] MEDS ORDERED: *HR* Nalbuphine 10 MG/ML AMPUL IV PRN (07:07)
[2021-07-12] MEDS ORDERED: Naloxone 0.4 MG/ML INJ IVP PRN (07:07)
[2021-07-12] MEDS ORDERED: Metoclopramide 10 MG/2 ML VIAL IVP PRN (07:07)
[2021-07-12] MEDS ORDERED: Ondansetron 4 MG/2 ML VIAL IVP PRN (07:07)
[2021-07-12] MEDS ORDERED: Lidocaine 1% 20 ML MDV ID PRN (07:07)
[2021-07-12] MEDS ORDERED: Azithromycin 500 MG in 0.9 % Sodium Chloride 250 ML IVPB PRN (07:07)
[2021-07-12] MEDS ORDERED: Ringers Solution, Lactated 1,000 ML IVC SCH (07:15)
[2021-07-12 07:27] LABS: Basophils % 0.3 %; Eosinophils % 0.2 %; Hematocrit 34.1 % (35.3-44.9); Hemoglobin 10.8 g/dL (11.5-15.4); Immature Granulocytes % 0.6 % (0-4); Lymphocytes # 1.8 K/mcL (0.6-4.6); Mean Corpuscular HGB Conc 31.7 g/dL (31.6-35.5); Mean Corpuscular Hemoglobin 26.9 pg (28.0-33.3); Mean Platelet Volume 9.9 fL (9.4-12.4); Monocytes # 0.9 K/mcL (0.0-1.3); Monocytes % 7.2 %; Platelet Count 269 K/mcL (140-400); Red Blood Count 4.01 M/mcL (3.82-4.97); Red Cell Distribution Width 13.2 % (11.5-14.5); Segmented Neutrophils % 77.7 %; White Blood Count 12.8 K/mcL (4.3-11.1)
[2021-07-12] MEDS ORDERED: EPHEDrine 50 MG/ML VIAL IVP PRN (07:28)
[2021-07-12] MEDS ORDERED: Epidural Premix (fent/bupiv) 110 ML EP SCH (07:30)
[2021-07-12] MEDS ORDERED: Epidural Premix (fent/bupiv) 110 ML EP ONE (07:33)
[2021-07-12 08:09] LABS: Influenza A PCR Negative (Negative); Influenza B PCR Negative (Negative); Resp. Syncytial Virus PCR Negative (Negative)
[2021-07-12 08:10] LABS: SARS-CoV-2 by PCR (In House) Negative (Negative)
[2021-07-12 09:39] LABS: Amphetamine Screen,Urine Negative ng/mL (Cutoff=1000); Barbiturate Screen,Urine Negative ng/mL (Cutoff=200); Benzodiazepines Screen,Urine Negative ng/mL (Cutoff=200); Cannabinoid Screen,Urine Negative ng/mL (Cutoff = 50); Cocaine Screen,Urine Negative ng/mL (Cutoff= 300); Opiate Screen,Urine Negative ng/mL (Cutoff=300); Phencyclidine Screen,Urine Negative ng/mL (Cutoff=25)
[2021-07-12] MEDS ORDERED: Ropivacaine/PF 0.2% 20 ML VIAL ONE (13:00)
[2021-07-12] MEDS ORDERED: *HR* FentaNYL (PF) 100 MCG/2 ML VIAL ONE (13:00)
[2021-07-12] MEDS ORDERED: Lanolin 7 G OINT...G. TP PRN (16:25)
[2021-07-12] MEDS ORDERED: Measles/Mumps/Rubella Vacc 0.5 ML VIAL SQ PRN (16:25)
[2021-07-12] MEDS ORDERED: Oxytocin 20 units/ LR 1000 mL 20 UNIT/1,000 ML BAG IVC SCH (16:25)
[2021-07-12] MEDS ORDERED: Rho Immune Globulin 1,500 UNIT SYRINGE IM PRN (16:25)
[2021-07-12] MEDS ORDERED: Benzocaine/Menthol 56 GM AEROSOL SPRAY TP PRN (16:25)
[2021-07-12] MEDS ORDERED: Oxytocin 20 units/ LR 1000 mL 20 UNIT/1,000 ML BAG IVC ONE (16:25)
[2021-07-12] MEDS ORDERED: Ondansetron ODT 4 MG TAB.RAPDIS SL PRN (16:25)
[2021-07-12] MEDS: Acetaminophen 325 MG TABLET PO SCH ×2 (16:43→22:41)
[2021-07-12] MEDS: Ibuprofen 600 MG TABLET PO SCH (21:09)
[2021-07-13] MEDS: Ibuprofen 600 MG TABLET PO SCH (03:57)
[2021-07-13 04:37] LABS: Basophils % 0.2 %; Eosinophils % 0.3 %; Hematocrit 29.8 % (35.3-44.9); Hemoglobin 9.6 g/dL (11.5-15.4); Immature Granulocytes % 0.6 % (0-4); Lymphocytes % 8.5 %; Mean Corpuscular HGB Conc 32.2 g/dL (31.6-35.5); Mean Corpuscular Hemoglobin 27.7 pg (28.0-33.3); Mean Corpuscular Volume 85.9 fL (83.0-100.0); Mean Platelet Volume 9.8 fL (9.4-12.4); Monocytes # 0.6 K/mcL (0.0-1.3); Monocytes % 5.3 %; Platelet Count 183 K/mcL (140-400); Red Blood Count 3.47 M/mcL (3.82-4.97); Red Cell Distribution Width 13.2 % (11.5-14.5); Segmented Neutrophils % 85.1 %; White Blood Count 11.7 K/mcL (4.3-11.1)
[2021-07-13] MEDS: Acetaminophen 325 MG TABLET PO SCH (07:03)
[2021-07-13 08:31] VITALS: BP 99/65; TEMP 98.1; O2SAT 97
[2021-07-13] MEDS ORDERED: Prenatal Vit/FA 1 EACH TABLET PO SCH (09:00)
[2021-07-13 11:28] VITALS: PULSE 84
== END 2021-07-13 15:19 | disposition home or self-care (01) | DRG 560 ==
LOC: 1NENULAB → 1NENUOBS 16:00
PROVIDERS: ADMIT Obstetrics & Gynecology; ATTEND Obstetrics & Gynecology